=== PATIENT | male | born 1965 | race Caucasian/White ===

== ENCOUNTER → 2016-07-31 | Outpatient (CLI) | payer OTHER ==
[~2016-07-31] MED LIST: ACTOS45 MG PO; AMARYL4 M1 PO; AMBIEN10 MG PO; ANDROGEL; ASPIRIN (CHILDR81 MG; ASPIRIN EC81 MG PO; B&O 60MG SUPPOS60 MG R; BENADRYL IVP; BIPAP INH; BUMETANIDE2 MG PO; BYETTA SUB-Q; BYETTA5 MCG/0.02 SUB-Q; COLACE100 MG PO; DEXTROSE 50%50 ML IVP; DILAUDID 2MG(HYD2 MG PO; DIOVAN160 MG PO; DULCOLAX10 MG R; EUCERIN CREME57 GM; FEOSOL325 MG PO; FLAGYL500 MG PO; FLOMAX0.4 MG PO; FLONASE 50 MCG/16 GM INH; FLONASE 50 MCG/16 GM NOSE; FLORASTOR250 MG PO; GLUCAGON 1 MG PE1 MG SUB-Q; GLUCOPHAGE1000 MG PO; GLUCOSE1 EACH PO; INVANZ 1 G1 GM/100 M IM/IV; K-TAB 10MEQ10 MEQ PO; LACTINEX CHEWA1 EACH PO; LANTUS (IN100 UNIT/M SUB-Q; LASIX40 M1 PO; LEVAQUIN 750 M750 MG PO; LEVAQUIN500 MG PO; LEVEMIR FL100 UNIT/1 SUB-Q; LEVEMIR100 UNIT/1 SUB-Q; LOPID600 MG PO; MILK OF MA400 MG/5 M PO; MIRALAX17 GM PO; MYCOSTATIN(NYST15 GM TOP; NORCO 5-325 MG1 TAB PO; NORVASC10 MG PO; NOVOLOG100 UNIT/M; NOVOLOG100 UNIT/M SUB-Q; OMNIPRED5 ML IOC; OMNIPRED5 ML OPHTH; PERCOCET [ROXIC1 TAB PO; POTASSIUM CHLO10 MEQ PO; POTASSIUM99 M1; PRAVACHOL40 MG PO; SUPREP BOWEL P354 ML; TOPROL XL100 MG PO; TRIACET 0.1 CRE15 GM TOP; TUMS REGULAR ST1 TAB PO; TYLENOL EXTRA500 MG PO; TYLENOL325 MG PO; VITAMIN D1000 UNIT PO; ZOFRAN2 MG/M1 IVP; ZYRTEC10 MG PO; [UNRECOGNIZED DRUG - OTHER] SUB-Q
== END ==
LOC: LGSMG 16:17
DX: Z00.00 Encounter for general adult medical examination without abnormal findings (principal); D64.9 Anemia, unspecified; I11.9 Hypertensive heart disease without heart failure; R80.9 Proteinuria, unspecified; E11.21 Type 2 diabetes mellitus with diabetic nephropathy; E11.65 Type 2 diabetes mellitus with hyperglycemia; E11.22 Type 2 diabetes mellitus with diabetic chronic kidney disease; I12.9 Hypertensive chronic kidney disease with stage 1 through stage 4 chronic kidney disease, or unspecified chronic kidney disease; N18.3 Chronic kidney disease, stage 3 (moderate)